=== PATIENT | male | born 1970 | race Caucasian/White ===

== ENCOUNTER 2016-09-23 16:59 | Emergency (ER) | payer OTHER ==
[~2016-09-23] VITALS: Ht 177.8 cm; Wt 102.2 kg
[2016-09-23] MEDS ORDERED: ALPRAZOLAM1 MG PO (17:46)
[2016-09-23] MEDS ORDERED: AMPHETAMINE SAL20 MG PO (17:46)
[2016-09-23] MEDS ORDERED: VENTOLIN HFA18 GM IH (17:46)
[2016-09-23] MEDS ORDERED: QUETIAPINE FUM200 MG PO (17:46)
[2016-09-23] MEDS ORDERED: LIDODERM 5% P1 PATCH TD (18:53)
[2016-09-23] MEDS ORDERED: INDOCIN50 MG PO (18:53)
[2016-09-23] MEDS ORDERED: PREDNISONE20 MG PO (18:53)
[2016-09-23] MEDS ORDERED: VALIUM5 MG PO (18:56)
[2016-09-23] MEDS ORDERED: PERCOCET 7.51 TABLET PO ×2 (19:16→19:18)
[2016-09-23 19:19] VITALS: BP 141/80
== END 2016-09-23 19:20 | disposition home or self-care (01) ==
LOC: EME 16:59
DX: M54.41 Lumbago with sciatica, right side (principal); G89.29 Other chronic pain; S39.012A Strain of muscle, fascia and tendon of lower back, initial encounter; R51 Headache; W11.XXXA Fall on and from ladder, initial encounter; Y99.0 Civilian activity done for income or pay; F17.200 Nicotine dependence, unspecified, uncomplicated
CPT/HCPCS: 72100; 99281; 99284; J3010